=== PATIENT | female | born 2000 | race Caucasian/White ===

== ENCOUNTER → 2018-01-27 | Outpatient (CLI) | payer OTHER ==
[~2018-01-27] MED LIST: ALBU90OI INH; BUSP5 PO; HYDACE5 PO; IBUP800 PO; SERT50 PO
[2018-01-27 22:36] LABS: Candida species (DNA Probe) Negative (NEGATIVE); G. vaginalis (DNA Probe) Positive (NEGATIVE); T. vaginalis (DNA Probe) Negative (NEGATIVE)
[2018-01-29 01:12] LABS: CHLAMYDIA TRACHOMATIS, NAA Negative (Negative); NEISSERIA GONORRHOEAE, NAA Negative (Negative)
== END | disposition home or self-care (01) ==
LOC: LAB 10:28 → LAB SHORT 10:28
PROVIDERS: Advanced Practice Midwife
DX: N89.8 Other specified noninflammatory disorders of vagina (principal)
CPT/HCPCS: 87480; 87491; 87510; 87591; 87660

== ENCOUNTER → 2021-07-13 | Outpatient (CLI) | payer OTHER | LOC: LAB SHORT 12:00 → LAB 12:00 | PROVIDERS: Family Medicine | DX: Z01.419 Encounter for gynecological examination (general) (routine) without abnormal findings (principal) | CPT/HCPCS: G0123 ==

== ENCOUNTER 2022-01-23 04:34 | Emergency (ER) | payer OTHER ==
[~2022-01-23] VITALS: Ht 167.6 cm; Wt 131.5 kg
== END 2022-01-23 05:42 | disposition home or self-care (01) ==
LOC: ER 04:34
DX: K08.89 Other specified disorders of teeth and supporting structures (principal); Z88.8 Allergy status to other drugs, medicaments and biological substances; Z87.891 Personal history of nicotine dependence
CPT/HCPCS: 64400; 99282-25

== ENCOUNTER → 2022-03-08 | Outpatient (CLI) | payer OTHER ==
[~2022-03-08] MED LIST changes: +PRENATAL TABLE1 EAC2 PO
[2022-03-08 16:59] LABS: Source, Urine Voided
[2022-03-08 18:33] LABS: Amorphous Light (0-Heavy); Bacteria Mod /hpf; Mucus Mod (0-Heavy); Red Blood Cells, Urine 0-2 /hpf (0-2); Squamous Epithelial Cells Few /hpf (Few)
== END | disposition home or self-care (01) ==
LOC: LAB SHORT 15:10 → LAB 15:10
PROVIDERS: Advanced Practice Midwife
DX: Z34.81 Encounter for supervision of other normal pregnancy, first trimester (principal)
CPT/HCPCS: 81015; 87086

== ENCOUNTER → 2022-03-29 | Outpatient (CLI) | payer OTHER ==
[2022-03-31 02:07] LABS: CHLAMYDIA TRACHOMATIS, NAA Negative (Negative)
== END | disposition home or self-care (01) ==
LOC: LAB 10:19 → LAB SHORT 10:19
PROVIDERS: Advanced Practice Midwife
DX: Z11.3 Encounter for screening for infections with a predominantly sexual mode of transmission (principal)
CPT/HCPCS: 87491; 87591

== ENCOUNTER → 2022-07-26 | Outpatient (CLI) | payer OTHER ==
[2022-07-26 13:36] LABS: BASOPHILS ABSOLUTE AUTO 0.04 K/mm3 (0.00-0.23); BASOPHILS PERCENT AUTO 0 % (0-2); EOSINOPHILS ABSOLUTE AUTO 0.17 K/mm3 (0.00-0.68); EOSINOPHILS PERCENT AUTO 1 % (0-6); Hematocrit 35.8 % (33.0-51.0); Hemoglobin 11.8 g/dL (11.5-16.0); IMMATURE GRAN ABSOLUTE AUTO 0.13 K/mm3 (0.00-0.10); IMMATURE GRAN PERCENT AUTO 1 % (0-1); LYMPHOCYTES ABSOLUTE AUTO 2.14 K/mm3 (0.84-5.20); LYMPHOCYTES PERCENT AUTO 16 % (21-46); MONOCYTES ABSOLUTE AUTO 0.74 K/mm3 (0.16-1.47); MONOCYTES PERCENT AUTO 5 % (4-13); Mean Corpuscular HGB 31.1 pg (26.0-34.0); Mean Corpuscular Volume 94 fL (80-100); NEUTROPHILS PERCENT AUTO 77 % (41-73); Platelet Count 187 K/mm3 (150-400); RDW Coefficient Variation 13.6 % (11.7-14.2); RDW Standard Deviation 46.5 fL (35.1-46.3); White Blood Cell Count 13.82 K/mm3 (4.00-11.30)
[2022-07-27 09:53] LABS: Candida species (DNA Probe) Positive (NEGATIVE); G. vaginalis (DNA Probe) Positive (NEGATIVE); T. vaginalis (DNA Probe) Negative (NEGATIVE)
== END | disposition home or self-care (01) ==
LOC: LAB SHORT 11:29
PROVIDERS: Advanced Practice Midwife
DX: O09.92 Supervision of high risk pregnancy, unspecified, second trimester (principal); N76.0 Acute vaginitis
CPT/HCPCS: 82950; 85025; 87480; 87510; 87660

== ENCOUNTER → 2022-08-23 | Outpatient (CLI) | payer OTHER ==
[2022-08-24 10:03] LABS: Candida species (DNA Probe) Positive (NEGATIVE); G. vaginalis (DNA Probe) Negative (NEGATIVE); T. vaginalis (DNA Probe) Negative (NEGATIVE)
== END | disposition home or self-care (01) ==
LOC: LAB SHORT 14:36
PROVIDERS: Advanced Practice Midwife
DX: N76.0 Acute vaginitis (principal)
CPT/HCPCS: 87480; 87510; 87660

== ENCOUNTER → 2022-09-06 | Outpatient (CLI) | payer OTHER | END | disposition home or self-care (01) | LOC: LAB SHORT 09:55 | DX: O09.93 Supervision of high risk pregnancy, unspecified, third trimester (principal) | CPT/HCPCS: 87081; 87150 ==

== ENCOUNTER 2022-10-01 05:40 | Inpatient (IN) | payer OTHER ==
[~2022-10-01] VITALS: Ht 167.6 cm; Wt 144.0 kg
[2022-10-01 06:17] LABS: BASOPHILS ABSOLUTE AUTO 0.04 K/mm3 (0.00-0.23); BASOPHILS PERCENT AUTO 0 % (0-2); EOSINOPHILS ABSOLUTE AUTO 0.11 K/mm3 (0.00-0.68); EOSINOPHILS PERCENT AUTO 1 % (0-6); Hematocrit 34.3 % (33.0-51.0); Hemoglobin 11.5 g/dL (11.5-16.0); IMMATURE GRAN ABSOLUTE AUTO 0.06 K/mm3 (0.00-0.10); IMMATURE GRAN PERCENT AUTO 1 % (0-1); LYMPHOCYTES ABSOLUTE AUTO 2.59 K/mm3 (0.84-5.20); LYMPHOCYTES PERCENT AUTO 20 % (21-46); MONOCYTES ABSOLUTE AUTO 1.11 K/mm3 (0.16-1.47); MONOCYTES PERCENT AUTO 9 % (4-13); Mean Corpuscular HGB 30.5 pg (26.0-34.0); Mean Corpuscular HGB Conc 33.5 g/dL (31.5-36.5); Mean Corpuscular Volume 91 fL (80-100); Mean Platelet Volume 12.9 fL (9.1-12.4); NEUTROPHILS ABSOLUTE AUTO 9.18 K/mm3 (1.96-9.15); NEUTROPHILS PERCENT AUTO 70 % (41-73); Platelet Count 182 K/mm3 (150-400); RDW Coefficient Variation 13.9 % (11.7-14.2); RDW Standard Deviation 46.4 fL (35.1-46.3); Red Blood Cell Count 3.77 M/mm3 (3.80-5.20); White Blood Cell Count 13.09 K/mm3 (4.00-11.30)
[2022-10-02] MEDS ORDERED: IBUP800 PO (18:22)
--- NOTE | 2022-10-02 22:52 | NUR ---
2245: PRINTED DISCHARGE INSTRUCTIONS, REVIEWED WITH PATIENT AND SIGNIFICANT OTHER. DENIES ADDITIONAL QUESTIONS AND CONCERNS. ID BANDS MATCHED WITH AND VERIFICATION FORM. DISCHARGE TO HOME TO CARE OF SIGNIFICANT OTHER.
== END 2022-10-02 22:41 | disposition home or self-care (01) | DRG 805 ==
LOC: OBS 05:40 → BC 05:41 → OBS 05:45 → BC 05:46
PROVIDERS: ADMIT Advanced Practice Midwife
PROC: 10E0XZZ Delivery of Products of Conception, External Approach (ICD-10-PCS; principal; 2022-10-01)
PROC: 3E0R3BZ Introduction of Anesthetic Agent into Spinal Canal, Percutaneous Approach (ICD-10-PCS; 2022-10-01)
PROC: 00HU33Z Insertion of Infusion Device into Spinal Canal, Percutaneous Approach (ICD-10-PCS; 2022-10-01)
PROC: 0U7C7ZZ Dilation of Cervix, Via Natural or Artificial Opening (ICD-10-PCS; 2022-10-01)
PROC: 10907ZC Drainage of Amniotic Fluid, Therapeutic from Products of Conception, Via Natural or Artificial Opening (ICD-10-PCS; 2022-10-01)
DX: O99.344 Other mental disorders complicating childbirth (principal); O75.3 Other infection during labor; Z37.0 Single live birth; O99.214 Obesity complicating childbirth; F43.12 Post-traumatic stress disorder, chronic; Z66 Do not resuscitate; F41.8 Other specified anxiety disorders; O69.1XX0 Labor and delivery complicated by cord around neck, with compression, not applicable or unspecified; Z3A.39 39 weeks gestation of pregnancy; Z87.891 Personal history of nicotine dependence
CPT/HCPCS: 36415; 51702; 59200; 85025; 86850; 86900; 86901; A9270; J1885; J2590; J7120

== ENCOUNTER → 2022-11-16 | Outpatient (CLI) | payer OTHER ==
[2022-11-18 03:37] LABS: CHLAMYDIA TRACHOMATIS, NAA Negative (Negative)
== END | disposition home or self-care (01) ==
LOC: LAB SHORT 13:21 → LAB 13:21
PROVIDERS: Advanced Practice Midwife
DX: Z11.3 Encounter for screening for infections with a predominantly sexual mode of transmission (principal); R87.619 Unspecified abnormal cytological findings in specimens from cervix uteri
CPT/HCPCS: 87491; 87591; G0145

== ENCOUNTER 2023-03-03 04:11 | Emergency (ER) | payer OTHER ==
[~2023-03-03] VITALS: Ht 167.6 cm; Wt 135.2 kg
[2023-03-03 04:24] VITALS: BP 157/94
[2023-03-03] MEDS ORDERED: POLYTRIM EYE DR10 M1 RIGHTEYE (06:42)
== END 2023-03-03 06:50 | disposition home or self-care (01) ==
LOC: ER 04:11
DX: H10.31 Unspecified acute conjunctivitis, right eye (principal); E11.9 Type 2 diabetes mellitus without complications; Z87.891 Personal history of nicotine dependence
CPT/HCPCS: 99282; A9270

== ENCOUNTER 2025-03-11 07:53 | Inpatient (IN) | payer OTHER ==
[~2025-03-11] VITALS: Ht 167.6 cm; Wt 147.7 kg
[2025-03-11] VITALS (14 sets, daily range): BP systolic 104–141; BP diastolic 58–83
[~2025-03-11 07:53] MED LIST changes: +POLYTRIM EYE DR10 M1 RIGHTEYE
[2025-03-11] MEDS ORDERED: Oxytocin 10 Unit / ML Vial IM PRN (08:05)
[2025-03-11] MEDS ORDERED: Ondansetron HCl 2 MG / ML 2ML Vial IV PRN (08:05)
[2025-03-11] MEDS ORDERED: Carboprost Tromethamine 250 MCG/ML 1ML Amp IM PRN (08:05)
[2025-03-11] MEDS ORDERED: Methylergonovine Maleate 0.2MG / ML 1ML Amp IM PRN (08:05)
[2025-03-11] MEDS ORDERED: FentaNYL 2mcg/ml-Bup 0.1% Epd 250 ML EPI PRN (08:05)
[2025-03-11] MEDS ORDERED: OXYTOCIN/RINGER'S LACTATE 500 ML IV PRN (08:05)
[2025-03-11] MEDS ORDERED: Tranexamic Acid 100 ML IV SCH (08:05)
[2025-03-11] MEDS ORDERED: ePHEDrine Sulfate 50 MG/ML 1ML Injection XX PRN (08:05)
[2025-03-11 08:50] LABS: BASOPHILS ABSOLUTE AUTO 0.03 K/mm3 (0.00-0.23); BASOPHILS PERCENT AUTO 0 % (0-2); EOSINOPHILS ABSOLUTE AUTO 0.10 K/mm3 (0.00-0.68); EOSINOPHILS PERCENT AUTO 1 % (0-6); Hematocrit 38.2 % (33.0-51.0); Hemoglobin 12.9 g/dL (11.5-16.0); IMMATURE GRAN ABSOLUTE AUTO 0.06 K/mm3 (0.00-0.10); IMMATURE GRAN PERCENT AUTO 0 % (0-1); LYMPHOCYTES ABSOLUTE AUTO 2.33 K/mm3 (0.84-5.20); LYMPHOCYTES PERCENT AUTO 17 % (21-46); MONOCYTES ABSOLUTE AUTO 0.71 K/mm3 (0.16-1.47); MONOCYTES PERCENT AUTO 5 % (4-13); Mean Corpuscular HGB Conc 33.8 g/dL (31.5-36.5); Mean Corpuscular Volume 93 fL (80-100); NEUTROPHILS ABSOLUTE AUTO 10.77 K/mm3 (1.96-9.15); NEUTROPHILS PERCENT AUTO 77 % (41-73); NRBC ABSOLUTE 0.00 K/mm3 (0.00-0.02); NRBC Auto 0.0 /100 WBC (0.0-0.2); Platelet Count 161 K/mm3 (150-400); RDW Coefficient Variation 13.6 % (11.7-14.2); RDW Standard Deviation 46.3 fL (35.1-46.3)
[2025-03-11] MEDS ORDERED: FentaNYL Citrate 50 MCG/ML 2 ML Injection IV PRN (15:20)
--- NOTE | 2025-03-11 17:55 | NUR ---
Pit break Pit stopped per provider Rachael H AYAAN and to be restarted at 10pm low dose 1mu/hr till 5am, then normal pit induction to resume. Pt to have cooks balloon removed at 1am. CNM orders for pt to recieve Ye for sleep this evening and reports she will be in in the a.m. to [facility].
[2025-03-11] MEDS ORDERED: OXYTOCIN/RINGER'S LACTATE 500 ML IV SCH (21:30)
[2025-03-12] VITALS (27 sets, daily range): BP systolic 98–169; BP diastolic 55–102
[2025-03-12] MEDS ORDERED: Ondansetron HCl 2 MG / ML 2ML Vial IV PRN (07:45)
[2025-03-12] MEDS ORDERED: ePHEDrine Sulfate 50 MG/ML 1ML Injection IV PRN (07:45)
[2025-03-12] MEDS ORDERED: Metoclopramide HCl 5MG / ML 2ML Vial IV PRN (07:45)
[2025-03-12] MEDS ORDERED: Naloxone HCl 0.4MG / ML 1ML Vial IV PRN (07:45)
[2025-03-12] MEDS ORDERED: DiphenhydrAMINE HCl 50 MG/ML 1ML Vial IV PRN (07:45)
[2025-03-12] MEDS ORDERED: NS 1,000 ML IV ONE (10:56)
[2025-03-12] MEDS ORDERED: NS 1,000 ML BAG IR SCH (11:00)
[2025-03-12] MEDS ORDERED: Carboprost Tromethamine 250 MCG/ML 1ML Amp IM PRN (19:00)
[2025-03-12] MEDS ORDERED: Benzocaine Topical Anesthetic Spray 60GM TOP PRN (19:00)
[2025-03-12] MEDS ORDERED: OXYTOCIN/RINGER'S LACTATE 500 ML IV SCH (19:00)
[2025-03-12] MEDS ORDERED: Oxytocin 10 Unit / ML Vial IM ONE (19:00)
[2025-03-12] MEDS ORDERED: Witch Hazel/Glycerin PADS TOP PRN (19:05)
[2025-03-12] MEDS ORDERED: Methylergonovine Maleate 0.2MG / ML 1ML Amp IM PRN (19:05)
[2025-03-13] MEDS ORDERED: Ketorolac Tromethamine 30mg Vial IV SCH
[2025-03-13 01:12] VITALS: BP 119/56
--- NOTE | 2025-03-13 01:18 | NUR ---
Assumed care at 2130 d/t staffing adjustment. Pt resting in bed at this time after shower. Denies pain or discomfort or any needs at this time. Pt is an experienced mother and feels confident about and meeting newborns needs.
[2025-03-13 08:11] VITALS: BP 119/73
[2025-03-13] MEDS ORDERED: Prenatal Vit/FE Fumarate/FA 1 Tab PO SCH (09:00)
[2025-03-13 12:37] VITALS: BP 134/83
--- NOTE | 2025-03-13 14:49 | NUR ---
ATTEMPTED TO CONTACT SPORTS AGENT FREIGHT ELEVATOR ERECTOR TO COME IN FOR CONSULT FOR EPDS SCORE OF 13. NO ANSWER. CONTACTED THE EMERGENCY ROOM TO DETERMINE IF SOCIAL WORK WAS IN HOUSE TODAY, THEY STATED THEY HADN'T SEEN ANYONE. [facility] DETERMINE NEXT AVAILABLE CARE COORDINATION STAFF MEMBER TO CONTACT, HE RECOMMENDED TO CALL RAFAELA SCHERER IN CARE COORDINATION. ATTEMPTED TO CONTACT HER BY VOCERA AND EXTENSION AND WAS UNABLE TO REACH ANYONE. LEFT A VOICEMAIL FOR THEM TO CALL BACK. NOTIFIED Carol SANFORD CNM OF ELEVATED SCORE AND NEED FOR CLEARANCE PRIOR TO DISCHARGE. Carol SANFORD CNM TO BE IN TO SEE PT.
[2025-03-13] MEDS ORDERED: Ketorolac Tromethamine 30mg Vial IV PRN (14:55)
[2025-03-13 16:57] VITALS: BP 131/82
--- NOTE | 2025-03-13 16:59 | NUR ---
K CLARIBEL CNM TO BEDSIDE TO CLEAR PT FOR DISCHARGE.
[2025-03-13 19:33] VITALS: BP 132/81
== END 2025-03-13 20:30 | disposition home or self-care (01) | DRG 807 ==
LOC: OBS 07:53 → BC 07:55 → OBS 07:58 → BC 07:59
PROVIDERS: ADMIT Advanced Practice Midwife
PROC: 10E0XZZ Delivery of Products of Conception, External Approach (ICD-10-PCS; principal; 2025-03-12)
PROC: 0U7C7DJ Dilation of Cervix with Intraluminal Device, Temporary, Via Natural or Artificial Opening (ICD-10-PCS; 2025-03-12)
PROC: 3E033VJ Introduction of Other Hormone into Peripheral Vein, Percutaneous Approach (ICD-10-PCS; 2025-03-12)
PROC: 10H07YZ Insertion of Other Device into Products of Conception, Via Natural or Artificial Opening (ICD-10-PCS; 2025-03-12)
PROC: 4A1H7CZ Monitoring of Products of Conception, Cardiac Rate, Via Natural or Artificial Opening (ICD-10-PCS; 2025-03-12)
PROC: 10H073Z Insertion of Monitoring Electrode into Products of Conception, Via Natural or Artificial Opening (ICD-10-PCS; 2025-03-12)
PROC: 00HU33Z Insertion of Infusion Device into Spinal Canal, Percutaneous Approach (ICD-10-PCS; 2025-03-12)
PROC: 3E0R3BZ Introduction of Anesthetic Agent into Spinal Canal, Percutaneous Approach (ICD-10-PCS; 2025-03-12)
DX: O99.344 Other mental disorders complicating childbirth (principal); Z37.0 Single live birth; Z3A.39 39 weeks gestation of pregnancy; O99.214 Obesity complicating childbirth; F41.8 Other specified anxiety disorders; F43.10 Post-traumatic stress disorder, unspecified; Z98.890 Other specified postprocedural states; Z87.891 Personal history of nicotine dependence; Z79.899 Other long term (current) drug therapy; Z79.1 Long term (current) use of non-steroidal anti-inflammatories (NSAID)
CPT/HCPCS: 36415; 51702; 85025; 86850; 86900; 86901; 86923; A9270; J1885; J2590; J3010; J7030; J7120